=== PATIENT | female | born 1970 | race Caucasian/White ===

== ENCOUNTER 2019-09-28 13:02 | Outpatient (CLI) | payer BC ==
--- NOTE | 2019-09-28 14:31 | MRI ---
MRI LUMBAR SPINE NONCONTRAST: HISTORY: Left lumbar radiculopathy. COMPARISON: None. FINDINGS: Appropriate T1 marrow signal intensity of the lumbar vertebrae. Lumbar spine vertebral body height is maintained. No fracture. No significant STIR hyperintensity to suggest vertebral body edema or ligamentous injury. Appropriate signal intensity of the visualized paraspinal muscles. Appropriate signal intensity of the visualized solid organs. 0.6 cm T2 renal cortical cyst is suspected. Conus medullaris terminates at the mid T12 level. T12-L1:Adequate disc hydration. No significant central canal stenosis or significant neural foraminal narrowing. L1-L2:Adequate disc hydration. No significant central canal stenosis or significant neural foraminal narrowing. L2-L3:Adequate disc hydration. No significant canal stenosis or significant neural foraminal. L3-L4:Adequate disc hydration. Generalized disc bulge minimally flattens the thecal sac. Minimal liga ment flavum thickening and facet hypertrophy. No significant central canal stenosis. Right neural foramen is patent. Mild left foraminal narrowing due to disc material. L4-L5:Mild loss of disc space height. Broad-based disc bulge with a minimal central disc protrusion. Minimal contact upon bilateral traversing L5 nerve roots without significant obscuration. No significant stenosis of the thecal sac. Mild bilateral foraminal narrowing due to disc material. L5-S1:Moderate loss of disc space height. There is a left subarticular disc herniation with a sequest ered disc fragment, measuring 0.7 cm in the craniocaudal dimension. There is complete obscuration the traversing left S1 nerve root. There is associated annular fissure at the level of disc herniatio n. Minimal contact upon the traversing right S1 nerve root without any obscuration. No significant stenosis of the thecal sac. Small amount of fluid in both facet joints. Moderate bilateral neural for aminal narrowing. IMPRESSION: Disc herniation at L5-S1 in the left subarticular zone. There is associated annular fissure. There is a sequestered disc fragment with complete obscuration the traversing left S1 nerve root. Transcribed Date/Time: 09/28/2019 3:23 PM
== END 2019-09-28 13:03 | disposition home or self-care (01) ==
LOC: SCSMRI 13:02
PROVIDERS: ATTEND Family Medicine
DX: M54.16 Radiculopathy, lumbar region (principal); M51.17 Intervertebral disc disorders with radiculopathy, lumbosacral region; K60.2 Anal fissure, unspecified
CPT/HCPCS: 72148